=== PATIENT | male | born 1955 | race Caucasian/White ===

== ENCOUNTER 2018-07-08 21:19 | Inpatient (IN) | payer OTHER, MEDICAID ==
[~2018-07-08] VITALS: Ht 167.6 cm; Wt 94.4 kg
--- NOTE | 2018-07-08 21:20 | NUR ---
Placed in room 06 . Placed on personnel monitor, blood pressure machine and pulse oximeter. To gown for exam. Side rails up. Report given to CATRACHITA MEIER.
--- NOTE | 2018-07-08 21:25 | NUR ---
Pt aaox4 came in with a complaint of shortness of breath via ambulance. Was discharged at [facility] yesterday with a diagnosis of Pneumonia. Rales noted upon auscultation. Has history of asthma, DM, HTN, CHF. Safety precaution observed. Will continue to monitor Pt.
[2018-07-08 21:28] VITALS: BP_SYST 116
--- NOTE | 2018-07-08 21:32 | NUR ---
ER Dr. Starr at bedside examining patient.
[2018-07-08] MEDS ORDERED: NACL 0.9% 1,000 ML IV ONE (21:33)
[2018-07-08 21:41] LABS: BILIRUBIN,URINE NEGATIVE (NEGATIVE); BLOOD, URINE NEGATIVE (NEGATIVE); CLARITY/URINE CLEAR (CLEAR); COLOR,URINE YELLOW (YELLOW); GLUCOSE,URINE 2+ (NEGATIVE); KETONES,URINE NEGATIVE (NEGATIVE); LEUKOCYTE ESTERASE ,URINE NEGATIVE (NEGATIVE); NITRITE, URINE NEGATIVE (NEGATIVE); PROTEIN URINE NEGATIVE (NEGATIVE)
--- NOTE | 2018-07-08 21:41 | NUR ---
Radiology at bedside for CXR
[2018-07-08] MEDS ORDERED: IPRATROPIUM BROM 0.5 MG/2.5 ML VIAL.NEB (ATROVENT) IH ONE (21:45)
[2018-07-08] MEDS ORDERED: ALBUTEROL SULFATE 0.083% 2.5 MG/3 ML VIAL.NEB IH ONE (21:45)
[2018-07-08] MEDS ORDERED: methylPREDNISolone SOD SUCC/PF 62.5 MG/ML VIAL IVP ONE (21:45)
[2018-07-08 21:47] LABS: CALCIUM 7.5 mg/dL (8.4-11.0); CREATININE 1.16 mg/dL (0.55-1.30); POTASSIUM 4.1 mmol/L (3.5-5.1)
[2018-07-08 21:47] LABS: BACTERIA,URINE FEW /HPF (None Seen); RBC,URINE 0-3 /HPF (0-3); WBC,URINE 0-3 /HPF (0-3); YEAST,URINE Few /HPF (None Seen)
[2018-07-08 21:51] LABS: INR 1.1 (0.80-1.20)
[2018-07-08 21:52] LABS: HEMATOCRIT 52.1 % (36-54); HEMOGLOBIN 16.7 g/dL (14.0-18.0); LYMPHOCYTES % (AUTO) 11.4 % (20.5-51.5); MEAN CORPUSCULAR HEMOGLOBIN 27 pg (27-31); MEAN CORPUSCULAR HGB CONC 32 % (32-36); MEAN CORPUSCULAR VOLUME 85 fL (79.0-98.0); NEUTROPHILS % (AUTO) 77.2 % (40.0-70.0); PLATELET COUNT (AUTO) 162 K/uL (130-430); RED BLOOD CELL COUNT(AUTO) 6.15 MIL/uL (4.2-6.2); RED CELL DISTRIBUTION WIDTH 14.6 % (9.0-15.0)
[2018-07-08 21:53] LABS: BASOPHILS % (AUTO) 0.2 % (0.0-2.0); EOSINOPHILS # (AUTO) 0.1 K/uL (0.0-0.4); LYMPHOCYTES # (AUTO) 1.1 K/uL (1.0-5.5); MONOCYTES % (AUTO) 10.2 % (1.7-9.3); NEUTROPHILS # (AUTO) 7.7 K/uL (1.8-7.7)
[2018-07-08 21:54] LABS: ALBUMIN 2.5 g/dL (3.4-4.8); TOTAL BILIRUBIN 0.3 mg/dL (0.0-1.0)
[2018-07-09] VITALS (7 sets, daily range): BP systolic 125–146
--- NOTE | 2018-07-09 | NUR ---
Pt in bed, no acute distress at this time. Will continue to monitor Pt.
[2018-07-09 00:52] LABS: BARBITURATE, URINE NEGATIVE (NEG <=200); BENZODIAZEPINE, URINE POSITIVE (NEG <=150); CANNABINOID, URINE NEGATIVE (NEG <=50); COCAINE, URINE NEGATIVE (NEG <=150); METHAMPHETAMINES SCREEN,URINE NEGATIVE (NEG <=500); OPIATE, URINE NEGATIVE (NEG <=100); PHENCYCLIDINE SCREEN,URINE NEGATIVE (NEG <=25); UR TRICYCLIC ANTIDEPRESSANTS NEGATIVE (NEG <=300); URINE AMPHETAMINE NEGATIVE (NEG <=500); URINE METHADONE NEGATIVE (NEG <=200); URINE OXYCODONE SCREEN NEGATIVE (NEG <=100); URINE PROPOXYPHENE SCREEN NEGATIVE (NEG <=300)
--- NOTE | 2018-07-09 03:30 | NUR ---
Patient will be admitted to care of Dr. Luz. Admitted to tele unit. Will go to room 121b. Belongings list completed. Summary report printed. Report will be given at bedside.
--- NOTE | 2018-07-09 03:30 | NUR ---
ADMIT NOTE Received pt from ER to the floor with a diagnosis of pneumonia. Admission process initiated. patient oriented to pain management, safety and call light-teach back done.
--- NOTE | 2018-07-09 05:00 | NUR ---
Assume Care Received patient resting in bed awake alert oriented x3. No c/o pain and no s/s any distress noted. IV patent to L a/c G 20. No infiltrate and with blood return. Patient ambulates with walker. Skin is intact. Discussed plan of care with patient and verbalized understanding.Call light in reach, will cont to monitor.
[2018-07-09] MEDS ORDERED: DILT180C67 PO (05:05)
[2018-07-09] MEDS ORDERED: PRED20TA PO (05:05)
[2018-07-09] MEDS ORDERED: ALBU8.5H8 INH (05:05)
[2018-07-09] MEDS ORDERED: LEVO750T45 PO (05:05)
[2018-07-09] MEDS ORDERED: ASPI-1153 PO (05:05)
[2018-07-09] MEDS ORDERED: OSEL75CA PO (05:05)
[2018-07-09] MEDS ORDERED: INSU100V3 SQ (05:05)
[2018-07-09] MEDS ORDERED: FLUT1DIS IH (05:05)
--- NOTE | 2018-07-09 06:08 | NUR ---
CONSULT REASON FOR CONSULT: PNA PERSON I SPOKE WITH: JUAN R CONSULTING PHYSICIAN: DR. LUCIO DIRECTIONAL DRILL OPERATOR PHONE NUMBER: [phone] ORDERING PHYSICIAN: Herrera SAUER
[2018-07-09] MEDS ORDERED: DEXTROSE 50% JECT 50 ML DISP.SYRIN IVP PRN ×2 (07:00)
[2018-07-09] MEDS ORDERED: ONDANSETRON HCL 4 MG/2 ML VIAL IVP PRN (07:00)
[2018-07-09] MEDS ORDERED: ALBUTEROL MDI INHALATION 8 GM INH INH PRN (07:00)
[2018-07-09] MEDS ORDERED: HYDROcodone/ACETAMIN 5-325 MG TAB (NORCO/ VICODIN) PO PRN (07:00)
[2018-07-09] MEDS: IPRATROPIUM BROM 0.5 MG/2.5 ML VIAL.NEB (ATROVENT) INH SCH ×5 (07:00→23:18)
[2018-07-09] MEDS ORDERED: HYDROcodone/ACETAMIN 10-325 MG TAB PO PRN (07:00)
[2018-07-09] MEDS: BUDESONIDE 0.5 MG/2 ML AMPUL.NEB INH SCH ×2 (07:00→20:06)
[2018-07-09] MEDS ORDERED: ACETAMINOPHEN 325 MG TABLET PO PRN (07:00)
[2018-07-09] MEDS ORDERED: INSULIN Lispro Prot/Lispro MIX 75-25, 100 UNITS/ML, 10 ML VIAL SQ SCH (07:00)
[2018-07-09] MEDS: ALBUTEROL SULFATE 0.083% 2.5 MG/3 ML VIAL.NEB INH SCH ×5 (07:00→23:17)
--- NOTE | 2018-07-09 07:07 | NUR ---
Final Notes Patient is resting in bed with eyes close at this time. No s/s of any distress noted. All needs met and anticipated. Call light in reach, bed in low position with side rails up x3, and bed alarm on for safety. Endorse care to Oralia MEIER.
--- NOTE | 2018-07-09 07:08 | NUR ---
OPENING NOTE: MORNING REPORT WAS TAKEN FROM SAFETY DEPOSIT CLERK NURSE. PATIENT IS RESTING IN BED WITH EYES CLOSED. PATIENT ON 4L NC. IV SALINE LOCKED. BED ALARM IS ON AND CALL LIGHT IS IN REACH. WILL CONTINUE TO MONITOR.
--- NOTE | 2018-07-09 07:25 | NUR ---
CONSULT ID PNA DR REGGIE LUCIO [phone] S/W DOROTHY ECKERT
[2018-07-09] MEDS ORDERED: PREDNISONE 20 MG TABLET PO SCH (09:00)
[2018-07-09] MEDS ORDERED: FLUTICASONE IH SCH (09:00)
[2018-07-09] MEDS ORDERED: SALMETEROL IH SCH (09:00)
[2018-07-09] MEDS: LEVOFLOXACIN 500 MG/D5W 100 ML IV SCH (09:06)
[2018-07-09] MEDS: NACL 0.9% 1,000 ML IV SCH ×2 (09:06→21:19)
[2018-07-09] MEDS: ASPIRIN 81 MG TABLET(ECOTRIN) PO SCH (09:07)
[2018-07-09] MEDS: DILTIAZEM HCL 180 MG CAP.SR.24H PO SCH (09:07)
[2018-07-09] MEDS: OSELTAMIVIR PHOSPHATE 75 MG CAPSULE PO SCH ×2 (09:08→21:20)
[2018-07-09] MEDS: methylPREDNISolone SOD SUCC 40 MG/ML VIAL IVP SCH ×2 (09:08→21:21)
--- NOTE | 2018-07-09 09:25 | NUR ---
: DR LUCIO CALLED FOR CONSULT. ORDERED INFLUENZA SCREEN.
--- NOTE | 2018-07-09 10:51 | NUR ---
PATIENT'S PHONE: PATIENT WANTED PHONE BUT NOT AT BEDSIDE. LOOKED IN BELONGINGS LIST AND NO LISTED. CALLED SON TO SEE IF HE HAS IT BUT DID NOT ANSWER. WILL CALL BACK LATER AND LET CHARGE NURSE KNOW.
[2018-07-09] MEDS: INSULIN REGULAR, HUMAN 100 UNITS/ML, 10 ML VIAL (novoLIN R) SUBCUT PRN ×3 (11:37→21:11)
--- NOTE | 2018-07-09 11:50 | NUR ---
NOTE: PATIENT'S SUGAR TAKEN AND WAS 435. GAVE INSULIN TO COVER. WILL CALL PATIENT WAS COMPLAINING OF AGITATION. GAVE PATIENT PRN ATIVAN. ALL NEEDS MET. CALL LIGHT IS IN REACH. WILL CONTINUE TO MONITOR.
[2018-07-09] MEDS: LORazepam 2 MG/ML VIAL IVP PRN ×3 (11:51→21:37)
--- NOTE | 2018-07-09 12:20 | NUR ---
: DR SHAH CALLED BACK. LET KNOW PATIENT'S SUGAR WAS 435 AND THAT I GAVE HIM THE SCHEDULED INSULIN FROM THIS MORNING BECAUSE IT WASNT GIVEN THIS MORNING. OKAYED. LET DR KNOW PATIENT ON SOLU MEDROL AND PREDNISONE. SAID TO STOP PREDNISONE.
--- NOTE | 2018-07-09 12:30 | NUR ---
PATIENT TRANSFERRED TO OTHER ROOM BECAUSE OF POSITIVE INFLUENZA A. ALL BELONGINGS WITH PATIENT.
--- NOTE | 2018-07-09 15:01 | NUR ---
INSULIN: ASKED DR SHAH THAT SINCE I GAVE HIS HUMALOG LATE IF HE WANTS ME TO HOLD [address] SAID YES.
--- NOTE | 2018-07-09 15:49 | NUR ---
CALLED SON AGAIN BUT STILL NO ANSWER. PATIENT SAID HE LOST HIS PHONE AND NOW [facility] WHICH HAD $100. WILL ASK CHARGE NURSE NILE.
--- NOTE | 2018-07-09 16:19 | NUR ---
CALLED [facility] TO SEE IF THEY HAD PATIENT'S BELONGINGS. SPOKE TO WILLIAM. SAID SHE SENT OUT AN EMAIL TO [facility] AND THEY WILL CALL ME BACK TODAY OR TOMORROW.
--- NOTE | 2018-07-09 17:11 | NUR ---
DAMEON FROM [facility] CALLED BACK. SAID THAT PATIENT ONLY HAD ID AND CLOTHES WITH HIM WHEN PICKED UP FROM AMBULANCE.
--- NOTE | 2018-07-09 17:12 | NUR ---
BLOOD SUGAR: CHECKED PATIENT'S BLOOD SUGAR AND WAS 327. INSULIN GIVEN TO COVER. PATIENT MOVED TO ROOM 118 BECAUSE TV WASNT WORKING. PATIENT WAS COMPLAINING OF AGITATION. GAVE ATIVAN. CALL LIGHT IS IN REACH. WILL CONTINUE TO MONITOR.
--- NOTE | 2018-07-09 19:12 | NUR ---
CLOSING NOTE: PATIENT SITTING IN BED WITH NO SIGNS OF DISTRESS. REPORT WAS GIVEN TO NIGHT NURSE AT BEDSIDE. PATIENT ON ROOM AIR. IV HAS FLUIDS INFUSING. BED ALARM IS ON AND CALL LIGHT IS IN REACH. ALL NEEDS MET.
[2018-07-09] MEDS ORDERED: INSULIN Lispro Prot/Lispro MIX 75-25, 100 UNITS/ML, 10 ML VIAL SUBCUT ONE (21:00)
--- NOTE | 2018-07-09 21:09 | NUR ---
PAGED Herrera SAUER FOR PATIENT CLAU ARRINGTON IN ROOM 118A REGARDING ORDERS. [phone]
[2018-07-09] MEDS ORDERED: INSULIN REGULAR, HUMAN 100 UNITS/ML, 10 ML VIAL SUBCUT ONE (21:15)
[2018-07-10 00:01] VITALS: BP_SYST 143
[2018-07-10] MEDS: LORazepam 2 MG/ML VIAL IVP PRN ×3 (01:59→20:10)
[2018-07-10] MEDS: ALBUTEROL SULFATE 0.083% 2.5 MG/3 ML VIAL.NEB INH SCH ×6 (03:00→23:07)
[2018-07-10] MEDS: IPRATROPIUM BROM 0.5 MG/2.5 ML VIAL.NEB (ATROVENT) INH SCH ×6 (03:00→23:07)
[2018-07-10] MEDS: LEVOFLOXACIN 500 MG/D5W 100 ML IV SCH (05:25)
[2018-07-10] MEDS: INSULIN REGULAR, HUMAN 100 UNITS/ML, 10 ML VIAL (novoLIN R) SUBCUT PRN ×2 (05:38→11:39)
[2018-07-10 06:18] LABS: EOSINOPHILS % (AUTO) 0.1 % (0.0-4.0); HEMOGLOBIN 15.8 g/dL (14.0-18.0); LYMPHOCYTES # (AUTO) 0.5 K/uL (1.0-5.5); LYMPHOCYTES % (AUTO) 2.7 % (20.5-51.5); MEAN CORPUSCULAR HEMOGLOBIN 28 pg (27-31); MEAN CORPUSCULAR HGB CONC 33 % (32-36); MEAN CORPUSCULAR VOLUME 86 fL (79.0-98.0); MONOCYTES # (AUTO) 0.7 K/uL (0.0-1.0); MONOCYTES % (AUTO) 3.8 % (1.7-9.3); NEUTROPHILS # (AUTO) 18.3 K/uL (1.8-7.7); PLATELET COUNT (AUTO) 199 K/uL (130-430); RED BLOOD CELL COUNT(AUTO) 5.61 MIL/uL (4.2-6.2); RED CELL DISTRIBUTION WIDTH 13.2 % (9.0-15.0); WHITE BLOOD COUNT (AUTO) 19.5 K/uL (4.8-10.8)
[2018-07-10 06:25] LABS: ALBUMIN 2.6 g/dL (3.4-4.8); CALCIUM 8.3 mg/dL (8.4-11.0); CREATININE 0.85 mg/dL (0.55-1.30); PHOSPHORUS 3.5 mg/dL (2.7-4.5); POTASSIUM 4.7 mmol/L (3.5-5.1); TOTAL BILIRUBIN 0.4 mg/dL (0.0-1.0)
--- NOTE | 2018-07-10 06:45 | NUR ---
pt.presented challenges:w/in shift.pt.presents affect;restless/aggressive.loc;confused.pt.received@change of shift requesting food/ snacks.i apprised the pt.that i would assessed the blood glucose p/t providing the pt.w/snacks;pt.was insistent :he wanted snacks.i assessed the blood glucose;value;4489mg/dl.i administered 12 units;regular insulin per sliding scale.i administered;15-units; humulin:mix;/25. was paged re;the elevated blood glucose.i apprised of the elevated blood glucose value: ordered;20 units regular insulin x1.i administered the insulin.pt.request snacks throughout the shift.i would apprised the pt. that diabetic diet guideline should be follow.pt.dismissed the information.upon assessing the blood glucose:post administration of the insulins blood glucose.no c/o pain,nausea.i would provide snacks.pt.affect;remained restless;i administered ativan:1mg ivp x2.i re-established iv access;rt.hand.re-connecting the iv fluids.pt.would re-position self maintaining posturing in all bed settings. call light/telephone placed w/in the reach of the pt. Addendum: 07/10/18 at 0835 by Jacob Olivas RN pt.presents hx;chf.i have weighed the pt.in the am.:0600a. Addendum: 07/10/18 at 0836 by Jacob Olivas RN blood glucose value:was noted;448mg/dl.@2030p:07/09/18.
--- NOTE | 2018-07-10 06:54 | NUR ---
Nutrition Update Randell Scale 18 noted. Pt admitted for pneumonia Diet: cardiac low CHOL low fat 2gm Na diet BMI: 33.2 kg/m2 RD to follow per nutrition care standards.
[2018-07-10] MEDS ORDERED: INSULIN Lispro Prot/Lispro MIX 75-25, 100 UNITS/ML, 10 ML VIAL SUBCUT SCH (07:00)
[2018-07-10] MEDS: BUDESONIDE 0.5 MG/2 ML AMPUL.NEB INH SCH ×2 (07:01→20:26)
[2018-07-10 07:12] LABS: NEUTROPHILS % (AUTO) 93.4 % (40.0-70.0)
[2018-07-10 07:13] LABS: C-REACTIVE PROTEIN QUANT 0.6 mg/dL (0-0.5)
[2018-07-10 07:37] LABS: ERYTHROCYTE SEDIMENTATION RATE 9 MM/HR (0-15)
[2018-07-10 08:00] VITALS: BP_SYST 109
--- NOTE | 2018-07-10 08:00 | NUR ---
Opening Note Report received from [facility] shift nurse. Patient is currently resting in bed. Droplet precautions are in place. IV is on the right hand 22g running NS@75. Call light is within reach and bed is in low position. Patient is very confused and disrobing himself. Reorientation was provided. Patient is on breathing treatment q4h. Will continue to monitor.
[2018-07-10] MEDS: methylPREDNISolone SOD SUCC 40 MG/ML VIAL IVP SCH ×2 (09:28→20:10)
[2018-07-10] MEDS: DILTIAZEM HCL 180 MG CAP.SR.24H PO SCH (09:28)
[2018-07-10] MEDS: OSELTAMIVIR PHOSPHATE 75 MG CAPSULE PO SCH ×2 (09:28→20:10)
[2018-07-10] MEDS: ASPIRIN 81 MG TABLET(ECOTRIN) PO SCH (09:28)
--- NOTE | 2018-07-10 10:20 | NUR ---
Rounds Assisted the patient to the restroom and back into bed.
[2018-07-10] MEDS ORDERED: methylPREDNISolone SOD SUCC 40 MG/ML VIAL IVP ONE (11:00)
[2018-07-10] MEDS ORDERED: ALBUTEROL SULFATE 0.083% 2.5 MG/3 ML VIAL.NEB INH PRN (11:00)
[2018-07-10] MEDS ORDERED: IPRATROPIUM BROM 0.5 MG/2.5 ML VIAL.NEB (ATROVENT) INH PRN (11:00)
[2018-07-10] MEDS ORDERED: FUROSEMIDE 20 MG/2 ML VIAL IVP ONE (11:00)
[2018-07-10 11:27] VITALS: BP_SYST 129
[2018-07-10] MEDS ORDERED: ENOXAPARIN SODIUM 40 MG/0.4 ML SYRINGE SUBCUT ONE (11:30)
--- NOTE | 2018-07-10 12:27 | NUR ---
Rounds Assisted the patient to the restroom. However, he is very unsteady. Encouraged him to use the urinal. Dr. Rothman saw the patient. Orders were received.
--- NOTE | 2018-07-10 14:30 | NUR ---
Rounds Patient is insisting on getting out of bed and urinating on the floor. Reorientation was provided. Bed alarm is in place. Education on fall prevention was provided.
[2018-07-10 15:55] VITALS: BP_SYST 118
--- NOTE | 2018-07-10 16:35 | NUR ---
Rounds Dr. Poole rounded on the patient. Orders received.
[2018-07-10] MEDS: INSULIN ASPART 100 UNITS/ML, 10 ML VIAL (NovoLOG) SUBCUT PRN ×2 (17:09→20:55)
[2018-07-10] MEDS: INSULIN Lispro Prot/Lispro MIX 75-25, 100 UNITS/ML, 10 ML VIAL SUBCUT SCH (17:11)
--- NOTE | 2018-07-10 18:54 | NUR ---
Closing Note Assisted the patient to the restroom and back into bed. Patient is refusing to use the bedside commode or urinal. Dr. Rothman and Dr. Poole both saw patient. Orders were received. No change in current status. Will endorse care to the oncoming nurse.
--- NOTE | 2018-07-10 19:45 | NUR ---
PM ASSESSMENT PT. ASLEEP AT THIS TIME, NO DISTRESS NOTED, NO S/S OF PAIN OR DISCOMFORT, VITAL SIGNS STABLE, CALL LIGHT WITHIN REACH, BED IN LOWEST POSITION, BED ALARM ON.
[2018-07-10 20:00] VITALS: BP_SYST 118
[2018-07-10] MEDS: HYDROmorphone 2 MG/ML VIAL IVP PRN (21:43)
--- NOTE | 2018-07-10 22:00 | NUR ---
RN ROUNDS PT. RESTING QUIETLY, NO DISTRESS NOTED, DENIES PAIN, CALL LIGHT WITHIN REACH, BED IN LOWEST POSITION, BED ALARM ON.
[2018-07-10 23:03] VITALS: BP_SYST 134
--- NOTE | 2018-07-11 | NUR ---
RN ROUNDS PT. RESTING QUIETLY, NO DISTRESS NOTED, DENIES PAIN, CALL LIGHT WITHIN REACH, BED IN LOWEST POSITION.
--- NOTE | 2018-07-11 02:00 | NUR ---
URINAL PT. AWAKE, ASSISTED PT. TO USE URINAL, PT. ABLE TO STAND AT BEDSIDE TO USE URINAL, ASSISTED PT. TO SIT IN CHAIR, NEW LINEN APPLIED, NEW GOWN APPLIED, ASSISTED SAFELY BACK INTO BED.
[2018-07-11] MEDS: HYDROmorphone 2 MG/ML VIAL IVP PRN ×2 (02:28→22:30)
--- NOTE | 2018-07-11 04:00 | NUR ---
RN ROUNDS PT. RESTING QUIETLY, NO DISTRESS NOTED, DENIES PAIN, CALL LIGHT WITHIN REACH, BED IN LOWEST POSITION, BED ALARM ON.
[2018-07-11] MEDS: IPRATROPIUM BROM 0.5 MG/2.5 ML VIAL.NEB (ATROVENT) INH SCH ×6 (04:22→23:00)
[2018-07-11] MEDS: ALBUTEROL SULFATE 0.083% 2.5 MG/3 ML VIAL.NEB INH SCH ×6 (04:22→23:00)
--- NOTE | 2018-07-11 05:56 | NUR ---
CONSULT CONSULT CALLED FOR DR. AGUDELO I SPOKE WITH RHIANNA ECKERT REASON FOR CONSULT: COPD REQUESTING CONSULT: DR. [employer] SALES AGENT PHONE NUMBER: [phone]
[2018-07-11] MEDS: LEVOFLOXACIN 500 MG/D5W 100 ML IV SCH (06:02)
--- NOTE | 2018-07-11 06:23 | NUR ---
CLOSING NOTES PT. SITTING UP IN BED WATCHING TV, NO DISTRESS NOTED, DENIES PAIN AT THIS TIME, IV ACCESS PATENT AND BENIGN, CALL LIGHT WITHIN REACH, BED IN LOWEST POSITION, BED ALARM ON.
[2018-07-11] MEDS: INSULIN Lispro Prot/Lispro MIX 75-25, 100 UNITS/ML, 10 ML VIAL SUBCUT SCH ×2 (06:38→17:17)
[2018-07-11] MEDS: INSULIN ASPART 100 UNITS/ML, 10 ML VIAL (NovoLOG) SUBCUT PRN ×4 (06:39→20:24)
[2018-07-11 06:45] LABS: BASOPHILS % (AUTO) 0.2 % (0.0-2.0); HEMATOCRIT 49.5 % (36-54); HEMOGLOBIN 16.2 g/dL (14.0-18.0); LYMPHOCYTES # (AUTO) 0.5 K/uL (1.0-5.5); LYMPHOCYTES % (AUTO) 2.4 % (20.5-51.5); MEAN CORPUSCULAR HEMOGLOBIN 28 pg (27-31); MEAN CORPUSCULAR HGB CONC 33 % (32-36); MEAN CORPUSCULAR VOLUME 85 fL (79.0-98.0); MONOCYTES # (AUTO) 0.3 K/uL (0.0-1.0); MONOCYTES % (AUTO) 1.8 % (1.7-9.3); NEUTROPHILS # (AUTO) 18.3 K/uL (1.8-7.7); NEUTROPHILS % (AUTO) 95.6 % (40.0-70.0); PLATELET COUNT (AUTO) 214 K/uL (130-430); RED BLOOD CELL COUNT(AUTO) 5.82 MIL/uL (4.2-6.2); RED CELL DISTRIBUTION WIDTH 13.6 % (9.0-15.0); WHITE BLOOD COUNT (AUTO) 19.1 K/uL (4.8-10.8)
[2018-07-11 07:02] LABS: ANION GAP 9 (5-15); C-REACTIVE PROTEIN QUANT < 0.2 mg/dL (0-0.5); CALCIUM 8.5 mg/dL (8.4-11.0); CHLORIDE 98 mmol/L (98-107); CREATININE 1.07 mg/dL (0.55-1.30); GLUCOSE 314 mg/dL (70-99); POTASSIUM 5.1 mmol/L (3.5-5.1); SODIUM SERUM 132 mmol/L (136-145); UREA NITROGEN, BLOOD 41 mg/dL (8-21)
[2018-07-11] MEDS: BUDESONIDE 0.5 MG/2 ML AMPUL.NEB INH SCH ×2 (07:19→19:51)
[2018-07-11 07:30] LABS: GFR AFRICAN AMERICAN 90 mL/min (>90)
[2018-07-11 08:00] VITALS: BP_SYST 130
--- NOTE | 2018-07-11 08:00 | NUR ---
Note Pt sitting up in bed eating his breakfast. Pt just received his breathing treatments. No SOB/resp distress or pain/discomfort noted at this time. IV in right AC intact and patent infusing IVF's. Tele unit attached and intact. No needs noted. Call light within reach.
[2018-07-11 08:14] LABS: ERYTHROCYTE SEDIMENTATION RATE 8 MM/HR (0-15)
[2018-07-11] MEDS: ASPIRIN 81 MG TABLET(ECOTRIN) PO SCH (08:51)
[2018-07-11] MEDS: OSELTAMIVIR PHOSPHATE 75 MG CAPSULE PO SCH ×2 (08:51→20:18)
[2018-07-11] MEDS: methylPREDNISolone SOD SUCC 40 MG/ML VIAL IVP SCH ×2 (08:51→20:18)
[2018-07-11] MEDS: DILTIAZEM HCL 180 MG CAP.SR.24H PO SCH (08:51)
[2018-07-11] MEDS: ENOXAPARIN SODIUM 40 MG/0.4 ML SYRINGE SUBCUT SCH (08:52)
[2018-07-11] MEDS: LORazepam 2 MG/ML VIAL IVP PRN ×3 (09:09→20:18)
--- NOTE | 2018-07-11 12:00 | NUR ---
Note Pt was seen and assessed by Dr Rothman and Dr Zuleta. Orders written and carried out. Pt has been resting in bed most of shift, after taking Ativan IVP for anxiety and restlessness. Pt sitting up in bed waiting for lunch tray at this time. No needs noted. Call light within reach.
[2018-07-11 12:14] VITALS: BP_SYST 128
--- NOTE | 2018-07-11 16:00 | NUR ---
Note Pt resting in bed after taking Ativan IVP again after lunch. Pt's son called and tried to speak to pt, but pt fell asleep at that time. Pt in and out of sleep all shift. No needs noted. Call light within reach.
[2018-07-11 16:40] VITALS: BP_SYST 129
--- NOTE | 2018-07-11 16:45 | NUR ---
Note Pt got OOB and took the FWW to ambulate to restroom. Pt instructed once again not to get OOB with a staff member at bedside assisting pt out of bed. Pt was assisted to restroom and now is back in bed with bed alarm on. Pt's bed alarm has been on all shift. No needs noted at this time. Call light within reach.
--- NOTE | 2018-07-11 18:20 | NUR ---
Note Pt resting in bed watching television. No SOB/resp distress or pain/discomfort noted at this time. Pt was checked on q1' and PRN all shift for needs and care. IV in right AC intact and patent. No needs noted. Call light within reach. Pt ate his dinner sitting up in bed.
[2018-07-11 20:00] VITALS: BP_SYST 132
--- NOTE | 2018-07-11 20:00 | NUR ---
Initial Notes Received patient resting in bed, awake, alert, oriented. Denies any acute distress or pain when asked. Vital signs stable. Breathing is even and unlabored. IV site patent/clean/dry. Patient noted not received a dinner tray tonight, sandwiches and snacks given to patient per request due to kitchen being closed. Needs addressed. Educated patient regarding use of call light for assistance and fall precautions, patient verbalized understanding. Call light in hand, fall precautions in place.
--- NOTE | 2018-07-11 22:00 | NUR ---
Nursing Notes Patient resting in bed, awake. Patient denies any acute distress or pain at this time. Breathing is even and unlabored. Additional snacks given to patient per request, educated patient on DM and blood sugar control, patient verbalized understanding. Needs addressed. Call light in hand, fall precautions in place.
--- NOTE | 2018-07-12 | NUR ---
Nursing Notes Patient resting in bed with eyes closed, easily aroused. Patient seems disoriented, requiring reorientation to surroundings. Patient denies any acute distress or pain at this time. Breathing is even and unlabored. Needs addressed. Call light in hand, fall precautions in place.
[2018-07-12 00:12] VITALS: BP_SYST 136
--- NOTE | 2018-07-12 02:20 | NUR ---
Nursing Notes Patient resting in bed with eyes closed. No acute distress noted, breathing is even and unlabored. Call light in hand, fall precautions in place. Will continue to monitor for changes and safety.
[2018-07-12] MEDS: IPRATROPIUM BROM 0.5 MG/2.5 ML VIAL.NEB (ATROVENT) INH SCH ×6 (03:28→22:20)
[2018-07-12] MEDS: ALBUTEROL SULFATE 0.083% 2.5 MG/3 ML VIAL.NEB INH SCH ×6 (03:29→22:20)
--- NOTE | 2018-07-12 04:03 | NUR ---
Nursing Notes Patient resting in bed with eyes closed, easily aroused upon nurse entering room. Patient denies any acute distress or pain at this time. Breathing is even and unlabored. Needs addressed. Call light in hand, fall precautions in place.
[2018-07-12] MEDS: INSULIN Lispro Prot/Lispro MIX 75-25, 100 UNITS/ML, 10 ML VIAL SUBCUT SCH ×2 (06:21→16:39)
[2018-07-12] MEDS: INSULIN ASPART 100 UNITS/ML, 10 ML VIAL (NovoLOG) SUBCUT PRN ×4 (06:21→20:15)
[2018-07-12] MEDS: LEVOFLOXACIN 500 MG/D5W 100 ML IV SCH (06:22)
[2018-07-12 06:23] LABS: BASOPHILS % (AUTO) 0.1 % (0.0-2.0); EOSINOPHILS % (AUTO) 0.1 % (0.0-4.0); HEMATOCRIT 49.4 % (36-54); HEMOGLOBIN 15.6 g/dL (14.0-18.0); LYMPHOCYTES # (AUTO) 0.5 K/uL (1.0-5.5); LYMPHOCYTES % (AUTO) 2.9 % (20.5-51.5); MEAN CORPUSCULAR HEMOGLOBIN 27 pg (27-31); MEAN CORPUSCULAR HGB CONC 32 % (32-36); MEAN CORPUSCULAR VOLUME 84 fL (79.0-98.0); MONOCYTES # (AUTO) 0.5 K/uL (0.0-1.0); MONOCYTES % (AUTO) 2.9 % (1.7-9.3); NEUTROPHILS # (AUTO) 17.8 K/uL (1.8-7.7); PLATELET COUNT (AUTO) 199 K/uL (130-430); RED BLOOD CELL COUNT(AUTO) 5.87 MIL/uL (4.2-6.2); RED CELL DISTRIBUTION WIDTH 13.6 % (9.0-15.0); WHITE BLOOD COUNT (AUTO) 18.8 K/uL (4.8-10.8)
--- NOTE | 2018-07-12 06:39 | NUR ---
Closing Notes Patient resting in bed with eyes closed, easily aroused. Patient denies any acute distress or pain at this time. Breathing is even and unlabored. IV site patent/clean/dry, no S/S infection/infiltration noted. Needs addressed throughout shift. Call light in hand, fall precautions in place. Will continue to monitor for changes and safety, and endorse all patient care/needs to oncoming nurse.
[2018-07-12 06:47] LABS: C-REACTIVE PROTEIN QUANT 0.3 mg/dL (0-0.5); CALCIUM 8.2 mg/dL (8.4-11.0); CREATININE 0.98 mg/dL (0.55-1.30); POTASSIUM 4.8 mmol/L (3.5-5.1)
[2018-07-12] MEDS: BUDESONIDE 0.5 MG/2 ML AMPUL.NEB INH SCH ×2 (07:15→19:40)
[2018-07-12 08:00] VITALS: BP_SYST 119
--- NOTE | 2018-07-12 08:00 | NUR ---
Note Pt sitting up in bed eating his breakfast. No SOB/resp distress or pain/discomfort noted at this time. IV in right AC intact and patent at this time. No needs noted. Call light within reach. Pt on droplet isolation - precautions maintained at this time.
[2018-07-12] MEDS: DILTIAZEM HCL 180 MG CAP.SR.24H PO SCH (09:08)
[2018-07-12] MEDS: LORazepam 2 MG/ML VIAL IVP PRN ×3 (09:08→23:03)
[2018-07-12] MEDS: methylPREDNISolone SOD SUCC 40 MG/ML VIAL IVP SCH (09:08)
[2018-07-12] MEDS: ASPIRIN 81 MG TABLET(ECOTRIN) PO SCH (09:08)
[2018-07-12] MEDS: OSELTAMIVIR PHOSPHATE 75 MG CAPSULE PO SCH ×2 (09:08→20:05)
[2018-07-12] MEDS: ENOXAPARIN SODIUM 40 MG/0.4 ML SYRINGE SUBCUT SCH (09:09)
[2018-07-12 10:08] LABS: ERYTHROCYTE SEDIMENTATION RATE 7 MM/HR (0-15)
--- NOTE | 2018-07-12 11:01 | NUR ---
PHYSICAL THERAPY INITIAL EVALUATION WAS PERFORMED ON 07/11/17. SEE THE "DOWN TIME DOCUMENTATION FORM" IN THE MEDICAL CHART AT THE NURSING UNIT.
[2018-07-12 12:40] VITALS: BP_SYST 126
--- NOTE | 2018-07-12 13:00 | NUR ---
Note Dr Luz was at bedside and assessment was completed at this time. Questions/concerns were answered at this time. Pt sitting up in bed eating his lunch at this time. Call light within reach. No SOB/resp distress noted at this time.
--- NOTE | 2018-07-12 14:45 | NUR ---
Note Pt resting in bed and watching television at this time. IV in right hand intact and patent - no needs noted at this time. Dr Luz spoke to pt and answered questions/concerns at that time. Call light within reach.
[2018-07-12 17:09] VITALS: BP_SYST 137
--- NOTE | 2018-07-12 17:30 | NUR ---
Note Pt sitting on side of bed urinating on the floor and removed his gown, threw his urinal on the floor. Pt abusive to staff. Pt finished his dinner. Pt tends to throw paper towels and equipment on the floor. Call light within reach.
--- NOTE | 2018-07-12 18:00 | NUR ---
Note Pt resting in bed. No SOB/resp distress or pain/discomfort noted. IV in right hand intact and patent at this time. Pt resting in bed without gown or any sheet - naked in bed, states he is hot and uncomfortable. Security was called and they spoke to pt about putting some clothes on or sheet. Pt was verbally abusive to staff and security. No needs noted. Pt finished eating his dinner. Call light within reach.
[2018-07-12] MEDS: PREDNISONE 20 MG TABLET PO SCH (20:05)
[2018-07-12 20:06] VITALS: BP_SYST 131
[2018-07-12] MEDS: HYDROmorphone 2 MG/ML VIAL IVP PRN (20:17)
--- NOTE | 2018-07-12 20:30 | NUR ---
PM SHIFT ASSESSMENT Received patient lying in bed, aox4, vital signs stable. C/O of pain, medicated with Dilaudid 2 mg IVP for pain management, educated on use and side effects of pain medication. Patient has new IV line to left hand with 22 gauge catheter, saline locked, old iv line to right ac infiltrated. Due medications administered, blood sugar check this pm, 174. covered with NovoLog sliding scale. Patient oriented to use call light, bed alarm on, droplet precautions maintained, will monitor.
--- NOTE | 2018-07-12 22:21 | NUR ---
RN ROUNDS Patient awake, in bed, rt at bedside administering breathing tx. Safety measures in place, bed alarm on, call light within reach, will monitor.
--- NOTE | 2018-07-12 23:17 | NUR ---
RN ROUNDS Patient awake and lying in bed, Ativan 1 mg IVP administered, educated on side effects of medication and safety precautions, patient needs reinforcement on safety measures. Bed alarm on, call light remains within reach, will closely monitor patient.
[2018-07-12 23:40] VITALS: BP_SYST 148
--- NOTE | 2018-07-13 00:26 | NUR ---
RN ROUNDS Patient sleeping, respirations even and unlabored, vital signs stable. Bed alarm on, call light remains within reach, will closely monitor patient.
[2018-07-13] MEDS: IPRATROPIUM BROM 0.5 MG/2.5 ML VIAL.NEB (ATROVENT) INH SCH ×4 (02:06→15:27)
[2018-07-13] MEDS: ALBUTEROL SULFATE 0.083% 2.5 MG/3 ML VIAL.NEB INH SCH ×4 (02:06→15:27)
--- NOTE | 2018-07-13 02:08 | NUR ---
RN ROUNDS Patient awake , used the urinal, denies any pain at this time, rt at bedside administering breathing treatment. Bed alarm on, call light remains within reach, will closely monitor patient.
[2018-07-13] MEDS: LORazepam 2 MG/ML VIAL IVP PRN (02:39)
--- NOTE | 2018-07-13 04:01 | NUR ---
RN ROUNDS Patient sleeping, respirations even and unlabored, on room air, safety and isolation precautions maintained, will monitor.
--- NOTE | 2018-07-13 04:21 | NUR ---
PAIN Patient awake, c/o of pain, medicated with norco 1 tab for pain management, safety precautions in place, bed alarm on. call light remains within reach, will reassess patient's pain level shortly.
[2018-07-13] MEDS: LEVOFLOXACIN 500 MG/D5W 100 ML IV SCH (06:00)
[2018-07-13] MEDS: INSULIN ASPART 100 UNITS/ML, 10 ML VIAL (NovoLOG) SUBCUT PRN ×3 (06:03→17:44)
[2018-07-13] MEDS: INSULIN Lispro Prot/Lispro MIX 75-25, 100 UNITS/ML, 10 ML VIAL SUBCUT SCH ×2 (06:04→17:45)
--- NOTE | 2018-07-13 06:52 | NUR ---
RN ROUNDS Patient awake , used the urinal, denies any pain at this time, IV line intact and patent, no signs of infiltration noted, due antibiotics administered, Blood sugar check this am, covered with insulin per md orders, patient needs attended to, droplet and safety measures maintained, bed alarm on, call light remains within reach, will closely monitor patient until report given to am nurse.
[2018-07-13] MEDS: BUDESONIDE 0.5 MG/2 ML AMPUL.NEB INH SCH (07:19)
[2018-07-13 07:45] LABS: ANION GAP 6 (5-15); CALCIUM 8.3 mg/dL (8.4-11.0); CHLORIDE 98 mmol/L (98-107); CREATININE 0.98 mg/dL (0.55-1.30); GLUCOSE 211 mg/dL (70-99); POTASSIUM 4.6 mmol/L (3.5-5.1); SODIUM SERUM 133 mmol/L (136-145); UREA NITROGEN, BLOOD 36 mg/dL (8-21)
[2018-07-13 07:53] LABS: BASOPHILS # (AUTO) 0.1 K/uL (0.0-0.2); BASOPHILS % (AUTO) 0.4 % (0.0-2.0); EOSINOPHILS % (AUTO) 0.2 % (0.0-4.0); HEMATOCRIT 48.9 % (36-54); LYMPHOCYTES # (AUTO) 0.7 K/uL (1.0-5.5); LYMPHOCYTES % (AUTO) 4.2 % (20.5-51.5); MEAN CORPUSCULAR HEMOGLOBIN 27 pg (27-31); MEAN CORPUSCULAR HGB CONC 33 % (32-36); MEAN CORPUSCULAR VOLUME 84 fL (79.0-98.0); MONOCYTES % (AUTO) 6.2 % (1.7-9.3); NEUTROPHILS # (AUTO) 14.4 K/uL (1.8-7.7); PLATELET COUNT (AUTO) 185 K/uL (130-430); RED BLOOD CELL COUNT(AUTO) 5.82 MIL/uL (4.2-6.2); RED CELL DISTRIBUTION WIDTH 13.8 % (9.0-15.0); WHITE BLOOD COUNT (AUTO) 16.2 K/uL (4.8-10.8)
[2018-07-13 07:55] LABS: GFR AFRICAN AMERICAN 100 mL/min (>90)
[2018-07-13 08:00] VITALS: BP_SYST 125
--- NOTE | 2018-07-13 08:00 | NUR ---
am notes Pa tient in bed, eating breakfast. denies any pain or discomfort. uses urinal. voiding ok. on room air, denies any shortness of breath, still has occasional cough. afebrile. safety precaution observed. Enc to call for help as needed. call light in reach. will monitor.
[2018-07-13 08:03] LABS: C-REACTIVE PROTEIN QUANT < 0.2 mg/dL (0-0.5)
[2018-07-13] MEDS: ASPIRIN 81 MG TABLET(ECOTRIN) PO SCH (09:31)
[2018-07-13] MEDS: PREDNISONE 20 MG TABLET PO SCH (09:31)
[2018-07-13] MEDS: DILTIAZEM HCL 180 MG CAP.SR.24H PO SCH (09:31)
[2018-07-13] MEDS: OSELTAMIVIR PHOSPHATE 75 MG CAPSULE PO SCH (09:32)
[2018-07-13] MEDS: ENOXAPARIN SODIUM 40 MG/0.4 ML SYRINGE SUBCUT SCH (09:34)
--- NOTE | 2018-07-13 10:00 | NUR ---
NOTES- RESTING IN BED, NO COMPLAINTS AT THIS TIME.
[2018-07-13 10:58] LABS: ERYTHROCYTE SEDIMENTATION RATE 3 MM/HR (0-15)
[2018-07-13 11:58] VITALS: BP_SYST 137
--- NOTE | 2018-07-13 14:00 | NUR ---
NOTES- PT WANTS TO GO HOME, PER PHYSICAL THERAPY PATIENT NEEDS FWW AT HOME. CALLED AND MADE AWARE. MD ORDER D/C HOME WITH FWW. DISCHARGE PLANNING MADE AWARE.
--- NOTE | 2018-07-13 15:55 | NUR ---
Discharge Planning: DCP faxed to [facility] (f [phone] p [phone]) for FWW, VERONICA to follow. Addendum: 07/13/18 at 1724 by Radha WALKER [facility] (f [phone] p [phone]) Per Jr FWW will be delivered to patients home 07/14/18, DCP made patient aware and CM.
--- NOTE | 2018-07-13 16:10 | NUR ---
NOTES SPOKE TO DR. PABLO LEDEZMA MED RECMD INSTRUCTED TO CALL PATIENT PHARMACY AND TO TELL THEM TO CALL HIM.
[2018-07-13 16:41] VITALS: BP_SYST 140
--- NOTE | 2018-07-13 16:47 | NUR ---
NOTES- SPOKE TO THE PHARMACY, PER PHARMACY ITS BETTER THAT DR. SHAH TO CALL THEM. MADE DR. SHAH AWARE. PER MD HE WILL DO THE MED REC. ALSO INFORMED, THAT PATIENT'S IS ASKING IF HE NEEDS NEBULIZER AT HOME, PER MD PATIENTS DOES NOT NEED IT.
[2018-07-13] MEDS ORDERED: GLIP5TAB13 PO (16:48)
[2018-07-13] MEDS ORDERED: INSU100V3 SQ (16:48)
[2018-07-13] MEDS ORDERED: LEVO250T2 PO (16:48)
[2018-07-13] MEDS ORDERED: BUDE0.5A INH (16:48)
[2018-07-13] MEDS ORDERED: ALBU8.5H8 INH (16:48)
--- NOTE | 2018-07-13 16:58 | NUR ---
NOTES/FWW SPOKE TO MED CARE MANAGER,THEY STILL WORKING ON FWW AND WILL NOT BE AVAILABLE TODAY. PER MED CARE MANAGER, THEY CAN DELIVERED IT TO PATIENT'S HOME ONCE AVAILABLE.
--- NOTE | 2018-07-13 17:00 | NUR ---
NOTES PT IS GETTING IMPATIENT NOW AND WANTS TO GO HOME. INFORMED PATIENT THAT WE STILL WAITING FOR THE DOCTOR TO DO THE MED REC AND THE PRESCRIPTION FOR ANTIBIOTICS.
--- NOTE | 2018-07-13 17:09 | NUR ---
notes- Informed patient's that FWW still not available. Patient's really wants to go home now since this morning, per Patient, they can deliver the FWW at his house.
[2018-07-13 17:25] VITALS: BP_SYST 140
--- NOTE | 2018-07-13 18:02 | NUR ---
notes- per patient, nobody pick him up, he lives with his son but he does not have a car. per patient, his son will help him in the house. instructed patient that his FWW will be delivered in the morning per medical case manager.
--- NOTE | 2018-07-13 18:32 | NUR ---
DISCHARGE D/C PATIENT HOME VIA [facility]AXI, DENIES ANY PAIN OR DISCOMFORT. DENIES ANY SHORTNESS OF BREATH. AMBULATE WITH FWW WITH SUPERVISION. DISCHARGE INSTRUCTION AND PRESCRIPTION GIVEN TO PATIENT AND FAMILY. PT VERBALIZE UNDERSTANDING. ARM BAND AND IVL REMOVED.
--- NOTE | 2018-07-19 20:05 | NUR ---
P.T. NOTES LATE ENTRY FOR 07/11/18; REFER TO DOWNTIME FORMS; P.T. EVAL COMPLETED.
== END 2018-07-13 18:35 | disposition home or self-care (01) | DRG 193 ==
LOC: SED 21:19 → STU 07-09 03:05 → SMU 07-11 15:49
PROVIDERS: ADMIT Preventive Medicine Preventive Medicine/Occupational Environmental Medicine; ATTEND Preventive Medicine Preventive Medicine/Occupational Environmental Medicine
DX: J18.9 Pneumonia, unspecified organism (principal); J96.00 Acute respiratory failure, unspecified whether with hypoxia or hypercapnia; K85.90 Acute pancreatitis without necrosis or infection, unspecified; R65.11 Systemic inflammatory response syndrome (SIRS) of non-infectious origin with acute organ dysfunction; I13.0 Hypertensive heart and chronic kidney disease with heart failure and stage 1 through stage 4 chronic kidney disease, or unspecified chronic kidney disease; J44.1 Chronic obstructive pulmonary disease with (acute) exacerbation; E87.0 Hyperosmolality and hypernatremia; J44.0 Chronic obstructive pulmonary disease with (acute) lower respiratory infection; J45.901 Unspecified asthma with (acute) exacerbation; J10.00 Influenza due to other identified influenza virus with unspecified type of pneumonia; E83.52 Hypercalcemia; E11.22 Type 2 diabetes mellitus with diabetic chronic kidney disease; E11.65 Type 2 diabetes mellitus with hyperglycemia; F13.10 Sedative, hypnotic or anxiolytic abuse, uncomplicated; G47.30 Sleep apnea, unspecified; I48.91 Unspecified atrial fibrillation; I50.9 Heart failure, unspecified; N18.9 Chronic kidney disease, unspecified; T38.0X5A Adverse effect of glucocorticoids and synthetic analogues, initial encounter; Z79.4 Long term (current) use of insulin; K57.90 Diverticulosis of intestine, part unspecified, without perforation or abscess without bleeding; E66.9 Obesity, unspecified; Z68.33 Body mass index [BMI] 33.0-33.9, adult; R74.0 Nonspecific elevation of levels of transaminase and lactic acid dehydrogenase [LDH]; Z79.899 Other long term (current) drug therapy; Z79.82 Long term (current) use of aspirin; Y92.89 Other specified places as the place of occurrence of the external cause
CPT/HCPCS: 36415; 71045; 80048; 80053; 80307; 81000-TC; 82150-TC; 82550-TC; 82962; 83036; 83605; 83690-TC; 83735-TC; 83880; 84100-TC; 84484; 85025; 85379; 85610-TC; 85651-TC; 85730-TC; 86140; 86710; 87040-TC; 87081; 93005; 94640; 94760; 96361; 96374; 97110-GP; 97116-GP; 97530-GP; 99285; G0378; G0482; G9035; J1030; J1170; J1650; J1815; J1940; J1956; J2060; J2930; J7030; J7512; J7613; J7626